=== PATIENT | female | born 1980 | race Caucasian/White ===

== ENCOUNTER 2022-08-04 20:25 | Emergency (ER) | payer MEDICAID ==
[~2022-08-04] VITALS: Ht 177.8 cm; Wt 87.2 kg
[2022-08-04 20:45] VITALS: BP 121/88
[2022-08-04 21:01] VITALS: BP 102/86
[2022-08-04] MEDS ORDERED: AMOXICILLIN500 MG PO (21:11)
== END 2022-08-04 21:16 | disposition home or self-care (01) ==
LOC: ED 20:25
DX: S91.331A Puncture wound without foreign body, right foot, initial encounter (principal); W29.3XXA Contact with powered garden and outdoor hand tools and machinery, initial encounter; Y93.89 Activity, other specified; Y92.007 Garden or yard of unspecified non-institutional (private) residence as the place of occurrence of the external cause

== ENCOUNTER 2022-12-19 18:12 | Emergency (ER) | payer MEDICAID ==
[~2022-12-19] VITALS: Ht 177.8 cm; Wt 77.1 kg
[~2022-12-19 18:12] MED LIST: AMOXICILLIN500 MG PO
[2022-12-19 20:20] LABS: BASO% 0.3 % (0-3); EOS% 0.6 % (0-8); HEMATOCRIT 44.4 % (37.0-47.0); HEMOGLOBIN 13.9 g/dl (12.0-16.0); IMMATURE GRANULOCYTES 0.1 % (0.0-5.0); LYMPH% 28.6 % (15-41); MEAN CELL VOLUME 88.8 fL CALC (80.0-100.0); MEAN CORPUSCULAR HGB 27.8 pG CALC (26.0-32.0); MEAN CORPUSCULAR HGB CONC 31.3 g/dL CAL (32.0-36.0); MONO% 8.1 % (2-13); NEUT# 4.91 thou/uL (2.00-7.15); NEUT% 62.3 % (42-76); RED CELL DISTRI WIDTH 14.6 % (11.5-15.5)
[2022-12-19 20:24] LABS: URINE BILIRUBIN - DIPSTICK NEGATIVE (NEGATIVE); URINE BLOOD DIPSTICK NEGATIVE (NEGATIVE); URINE COLOR YELLOW; URINE GLUCOSE - DIPSTICK NEGATIVE (NEGATIVE); URINE KETONE TRACE mg/dL (NEGATIVE); URINE LEUK ESTERASE NEGATIVE (NEGATIVE); URINE PROTEIN - DIPSTICK NEGATIVE (NEG-TRACE); URINE SPECIFIC GRAVITY >=1.030; URINE UROBILINOGEN - DIPSTICK 0.2 E.U./dL (0.2)
[2022-12-19 20:26] LABS: URINE NITRITE - DIPSTICK NEGATIVE (Negative)
[2022-12-19 20:32] LABS: ALKALINE PHOSPHATASE 89 u/l (38-126); AMYLASE 54 u/l (30-110); ANION GAP 10 (6-22 (CALC)); BILIRUBIN, TOTAL 0.2 mg/dL (0.02-1.3); BUN 14 mg/dL (7-17); BUN/CREATININE RATIO 22 (12-20 (CALC)); CARBON DIOXIDE 23 mmol/l (22-30); CHLORIDE 109 mmol/l (95-108); CREATININE 0.6 mg/dL (0.5-1.0); GFR FOR AFR.AMER. > 60 ML/MIN (>=60 (CALC)); GFR OTHER RACES > 60 ML/MIN (>=60 (CALC)); LIPASE 94 u/l (23-300); POTASSIUM 3.8 mmol/l (3.5-5.1); SGOT/AST 26 u/l (14-36); SODIUM 138 mmol/l (137-146); TOTAL PROTEIN 6.6 g/dL (6.3-8.2)
[2022-12-19] MEDS ORDERED: ULTRAM50 MG PO (22:30)
[2022-12-19 22:51] VITALS: BP 117/58
== END 2022-12-19 22:58 | disposition home or self-care (01) ==
LOC: ED 18:12
PROVIDERS: Emergency Medicine
DX: Z98.84 Bariatric surgery status (principal); M79.10 Myalgia, unspecified site; R10.9 Unspecified abdominal pain
CPT/HCPCS: Q9967

== ENCOUNTER 2024-09-10 10:30 | Emergency (ER) | payer MEDICAID ==
[~2024-09-10] VITALS: Ht 177.8 cm; Wt 65.7 kg
[~2024-09-10 10:30] MED LIST changes: +CELEBREX200 M1 PO; +TRAMADOL HYDROC50 M1 PO; +ULTRAM50 MG PO
[2024-09-10 10:35] VITALS: BP 136/82
[2024-09-10 11:45] VITALS: BP 136/82
== END 2024-09-10 12:04 | disposition home or self-care (01) ==
LOC: ED 10:30
DX: J11.1 Influenza due to unidentified influenza virus with other respiratory manifestations (principal); Z20.822 Contact with and (suspected) exposure to COVID-19